=== PATIENT | female | born 1980 | race Caucasian/White ===

== ENCOUNTER 2017-08-09 05:35 | Day surgery (SDC) | payer BC ==
[~2017-08-09] VITALS: Ht 180.3 cm; Wt 93.0 kg
[2017-08-09] VITALS (7 sets, daily range): BP systolic 121–158; BP diastolic 63–87
[~2017-08-09 05:35] MED LIST: ALEVE220 M2 PO; ARMOUR THYROID30 MG PO; CIPRO250 MG PO
[2017-08-10 03:30] VITALS: BP 113/66
[2017-08-10 07:05] LABS: EOSINOPHIL (%) 0.1 % (0-5); HEMATOCRIT 38.5 % (36.0-46.0); IMMATURE GRANULOCYTE (%) 0.3 % (0.0-0.7); IMMATURE GRANULOCYTE COUNT 0.1 K/uL; INSTRUMENT ABS NEUTROPHIL CT 11.5 K/uL; LYMPHOCYTE COUNT 2.8 K/uL (1.0-2.8); MCHC 32.5 G/DL (30.0-36.0); MCV 86.1 FL (83-99); MONOCYTE (%) 6.3 % (3-12); NEUTROPHIL (%) 74.9 % (45-76); NEUTROPHIL COUNT 11.5 K/uL (1.8-6.4); PLATELET COUNT 318 K/uL (156-360); RBC DIS.WIDTH-CV 13.2 % (11.8-14.6); RBC DIS.WIDTH-SD 41.1 % (39-53); RED BLOOD COUNT 4.47 M/uL (3.80-5.20); WHITE BLOOD COUNT 15.4 K/uL (4.1-10.2)
[2017-08-10 08:59] VITALS: BP 118/73
[2017-08-10] MEDS ORDERED: ALEVE LIQUID G220 MG PO (11:16)
[2017-08-10 11:24] VITALS: BP 118/67
== END 2017-08-10 12:03 | disposition home or self-care (01) ==
LOC: SDC 05:35 → 2SOUTH 09:57 → 2EAST 09:57 → SDC 10:09 → ENRESERV 14:39 → SDC 15:35 → 2EAST 16:02
PROVIDERS: Obstetrics & Gynecology
DX: N80.0 Endometriosis of uterus (principal); D25.9 Leiomyoma of uterus, unspecified; N72 Inflammatory disease of cervix uteri; N92.0 Excessive and frequent menstruation with regular cycle; D50.9 Iron deficiency anemia, unspecified; E03.9 Hypothyroidism, unspecified; Z88.0 Allergy status to penicillin; Z87.891 Personal history of nicotine dependence; Z88.2 Allergy status to sulfonamides
CPT/HCPCS: 85025; 88307; G0378; J0131; J0330; J1100; J1170; J1580; J1885; J2250; J2405; J3010; J7050; J7120